=== PATIENT | female | born 1955 | race Two or more races ===

== ENCOUNTER 2019-02-26 11:01 | Emergency (ER) | payer OTHER ==
[~2019-02-26] VITALS: Ht 165.1 cm; Wt 67.1 kg
== END 2019-02-26 16:10 | disposition home or self-care (01) ==
LOC: ER 11:01
DX: S70.11XA Contusion of right thigh, initial encounter (principal); V49.88XA Car occupant (driver) (passenger) injured in other specified transport accidents, initial encounter; Y93.55 Activity, bike riding; Y92.488 Other paved roadways as the place of occurrence of the external cause; Y99.8 Other external cause status

== ENCOUNTER → 2019-08-16 | Emergency (ER) | payer OTHER | END | disposition left against medical advice (07) | LOC: ER 11:46 | DX: Z53.20 Procedure and treatment not carried out because of patient's decision for unspecified reasons (principal) ==

== ENCOUNTER 2023-05-13 08:40 | Emergency (ER) | payer OTHER ==
[~2023-05-13] VITALS: Ht 165.1 cm; Wt 62.6 kg
== END 2023-05-13 13:04 | disposition home or self-care (01) ==
LOC: ER 08:40
DX: S63.681A Other sprain of right thumb, initial encounter (principal); W10.8XXA Fall (on) (from) other stairs and steps, initial encounter; Y93.89 Activity, other specified; Y92.89 Other specified places as the place of occurrence of the external cause; Z88.0 Allergy status to penicillin; M19.041 Primary osteoarthritis, right hand

== ENCOUNTER 2024-05-20 08:27 | Emergency (ER) | payer OTHER ==
[~2024-05-20] VITALS: Ht 165.1 cm; Wt 61.2 kg
[2024-05-20] MEDS ORDERED: KETOROLAC TROMETHAMINE 30 MG VIAL IM ONE (10:15)
[2024-05-20] MEDS ORDERED: ORPHENADRINE CITRATE 30 MG/ML AMPUL IM ONE (10:15)
== END 2024-05-20 13:06 | disposition home or self-care (01) ==
LOC: ER 08:28
DX: S09.8XXA Other specified injuries of head, initial encounter (principal); W10.0XXA Fall (on)(from) escalator, initial encounter; Y93.89 Activity, other specified; Y92.038 Other place in apartment as the place of occurrence of the external cause; Z88.0 Allergy status to penicillin
CPT/HCPCS: 70450; 72100; 73070; 96372; 99284; J1885; J2360